=== PATIENT | male | born 1950 | race Native Hawaiian/Other Pacific Islander ===

== ENCOUNTER 2017-12-06 06:47 | Day surgery (SDC) | payer OTHER | END 2017-12-06 08:32 | disposition home or self-care (01) | LOC: OR 06:47 | PROC: 08RK3JZ Replacement of Left Lens with Synthetic Substitute, Percutaneous Approach (ICD-10-PCS; principal; 2017-12-06) | DX: H25.812 Combined forms of age-related cataract, left eye (principal); H52.222 Regular astigmatism, left eye | CPT/HCPCS: 66984; J0171; V2632 ==